=== PATIENT | male | born 1990 | race Caucasian/White ===

== ENCOUNTER 2020-11-12 21:18 | Emergency (ER) | payer SELFPAY ==
[~2020-11-12] VITALS: Ht 182.9 cm; Wt 88.5 kg
[2020-11-12 21:27] VITALS: BP 167/62
[2020-11-13] MEDS ORDERED: KETOROLAC 60 MG/2 ML VIAL IM ONE ×2 (01:23→01:25)
[2020-11-13] MEDS ORDERED: CLINDAMYCIN 150 MG CAP PO ONE (01:25)
--- NOTE | 2020-11-13 01:34 | NUR ---
NO NURSING INTERVENTIONS
[2020-11-13 01:35] VITALS: BP 167/62
== END 2020-11-13 01:35 | disposition home or self-care (01) ==
LOC: MED 21:18
DX: K08.89 Other specified disorders of teeth and supporting structures (principal); R68.84 Jaw pain
CPT/HCPCS: 96372; 99283; J1885